=== PATIENT | male | born 1980 | race Caucasian/White ===

== ENCOUNTER 2018-02-26 13:19 | Emergency (ER) | payer BC ==
[~2018-02-26] VITALS: Ht 182.9 cm; Wt 90.7 kg
--- NOTE | 2018-02-26 13:39 | NUR ---
Recieved patient to ED bed 09. Pt is complaining of "body feels hot" s/p using meth and GHB at 10am today. Pt sts today was the first time he tried GHB drug. Pt appears anxious. Pt connected to continous cardiac and pox monitoring. All needs are attended. Will continue to monitor. Pt seen and evaluated by Pj GREGORY.
--- NOTE | 2018-02-26 14:23 | NUR ---
Patient is resting comfortably in bed with eyes closed. Easily aroused. VSS
--- NOTE | 2018-02-26 15:37 | NUR ---
Patient discharged to home in stable condition. Written and verbal after care instructions given. Patient verbalizes understanding of instruction.
[2018-02-26 15:40] VITALS: BP 145/79
== END 2018-02-26 15:41 | disposition home or self-care (01) ==
LOC: ER 13:26
DX: R41.82 Altered mental status, unspecified (principal); F41.9 Anxiety disorder, unspecified; F15.20 Other stimulant dependence, uncomplicated; Z88.2 Allergy status to sulfonamides; Z88.1 Allergy status to other antibiotic agents; Z88.8 Allergy status to other drugs, medicaments and biological substances
CPT/HCPCS: 71045-TC; A4606; Z7610

== ENCOUNTER 2022-01-03 05:36 | Emergency (ER) | payer SELFPAY ==
[~2022-01-03] VITALS: Ht 182.9 cm; Wt 90.7 kg
--- NOTE | 2022-01-03 05:47 | NUR ---
[address] C/O DOING METH LAST NIGHT, NOT FEELING GOOD . TOLERATING R/A WELL WITH NO SOB. CONNECTED PT TO POX AND MONITOR. SAFETY MEASURES IN PLACE.
[2022-01-03] MEDS ORDERED: IV NS 0.9% 1,000 ML BAG IV ONE (06:00)
--- NOTE | 2022-01-03 06:05 | NUR ---
LAC #20G S/L; BLOOD COLLECTED AND SENT TO LAB. NS 1000ML IVF INFUSING ORDERED
--- NOTE | 2022-01-03 06:06 | NUR ---
TOBACCO SORTER AT PT'S BEDSIDE
[2022-01-03] MEDS ORDERED: LORAZEPAM 1 MG TABLET ONE (06:07)
--- NOTE | 2022-01-03 06:08 | NUR ---
URINE COLLECTED AND SENT TO LAB
[2022-01-03] MEDS ORDERED: LORAZEPAM 1 MG TABLET PO ONE (06:30)
[2022-01-03 06:31] LABS: CARBON DIOXIDE 24 mmol/L (21-32); CHLORIDE 105 mmol/L (98-107); CREATININE 1.2 mg/dL (0.6-1.3); GLUCOSE 118 mg/dL (74-106); POTASSIUM 3.4 mmol/L (3.5-5.1); SODIUM SERUM 138 mmol/L (136-145); UREA NITROGEN, BLOOD 13 mg/dL (7-18)
[2022-01-03 06:37] LABS: ALANINE AMINOTRANSFERASE 19 U/L (12-78); ALBUMIN 4.3 g/dL (3.4-5.0); ALKALINE PHOSPHATASE 70 U/L (46-116); ASPARTATE AMINOTRANSFERASE 15 U/L (15-37); BILIRUBIN,DIRECT 0.1 mg/dL (0.0-0.2); BILIRUBIN,TOTAL 0.7 mg/dL (0.2-1.0); TOTAL PROTEIN, SERUM 7.5 g/dL (6.4-8.2)
[2022-01-03 06:40] LABS: ACETAMINOPHEN 0 ug/ml (10-30); ALCOHOL, BLOOD < 3 mg/dL (0-0)
[2022-01-03 07:43] LABS: BILIRUBIN,URINE NEGATIVE (NEGATIVE); LEUKOCYTE ESTERASE ,URINE NEGATIVE (NEGATIVE); NITRITE, URINE NEGATIVE (NEGATIVE); PROTEIN,URINE NEGATIVE (NEGATIVE); UGLUCOSE NEGATIVE (NEGATIVE); UROBILINOGEN,URINE 0.2 EU/dL (0.2)
[2022-01-03 07:45] LABS: COLOR,URINE STRAW (YELLOW)
[2022-01-03 08:04] LABS: BASOPHILS % (AUTO) 0.2 % (0.0-2.0); EOSINOPHILS % (AUTO) 0.2 % (0.0-6.0); HEMATOCRIT 48 % (39-51); HEMOGLOBIN 16.6 g/dL (13.5-17.5); LYMPHOCYTES # (AUTO) 0.9 K/uL (0.8-4.8); LYMPHOCYTES % (AUTO) 6.7 % (20.0-44.0); MEAN CORPUSCULAR HGB CONC 34 g/dl (31.0-36.0); MEAN CORPUSCULAR VOLUME 92 fL (80-96); MONOCYTES # (AUTO) 0.6 K/uL (0.1-1.30); MONOCYTES % (AUTO) 4.6 % (2.0-12.0); NEUTROPHILS # (AUTO) 11.9 K/uL (1.8-8.9); NEUTROPHILS % (AUTO) 88.3 % (43.0-81.0); PLATELET COUNT (AUTO) 152 K/uL (150-450); RED BLOOD CELL COUNT(AUTO) 5.24 MIL/uL (4.5-6.0); WHITE BLOOD COUNT (AUTO) 13.5 K/uL (4.3-11.0)
[2022-01-03] MEDS ORDERED: ACETAMINOPHEN 325 MG TABLET PO ONE (08:30)
[2022-01-03] MEDS ORDERED: ACETAMINOPHEN ES 500 MG TABLET ONE (08:34)
--- NOTE | 2022-01-03 08:44 | NUR ---
IV removed. Catheter intact and site benign. Pressure and 4x4 applied to site. No bleeding noted.Patient discharged to home in stable condition. Written and verbal after care instructions given. Patient verbalizes understanding of instruction.
[2022-01-03 08:46] VITALS: BP 142/91
== END 2022-01-03 08:46 | disposition home or self-care (01) ==
LOC: ER 05:44
DX: R42 Dizziness and giddiness (principal); F15.10 Other stimulant abuse, uncomplicated; Z88.8 Allergy status to other drugs, medicaments and biological substances; Z60.2 Problems related to living alone
CPT/HCPCS: 36415; 71045; 80048; 80076; 80143; 80307; 80320; 81003; 84484 ×2; 85025; 93005; 96360; 99285; J7030; G0480